=== PATIENT | female | born 1955 | race Caucasian/White ===

== ENCOUNTER 2018-10-30 07:58 | Day surgery (SDC) | payer MEDICARE, MEDICAID ==
[2018-10-30] MEDS ORDERED: PROPOFOL 10 MG/ML VIAL IV ONE (07:59)
[2018-10-30] MEDS ORDERED: FENTANYL PF 100MCG/2ML VIAL IV ONE (07:59)
[2018-10-30] MEDS ORDERED: LIDOCAINE 2% MDV (20MG/ML) 20ML VIAL IV ONE (07:59)
--- NOTE | 2018-10-30 14:20 | Operative Note ---
DATE OF SURGERY: 10/30/2018 OPERATION: ESOPHAGOGASTRODUODENOSCOPY with multiple biopsies. INDICATION: Recurring pyrosis with prior history of esophageal ulceration. Patient also with intermittent mild dysphagia and odynophagia. She takes Protonix on an as-needed basis only. She takes antacids also. Upper endoscopy is performed at this time for further evaluation. ANESTHESIA: Intravenous sedation was administered by the department of anesthesiology and included Diprivan titrated to effect. PROCEDURE: Following informed consent from this alert individual, including a discussion of the risks and benefits of the procedure and an opportunity for the patient to ask questions, the patient was in the left lateral decubitus position. The Olympus [id number] video endoscope was inserted into the posterior pharynx and esophagus without resistance. The posterior pharynx appeared unremarkable. The esophagus was normal to the level of the GE junction where a superficial 7-8 mm ulceration was noted just above the GE junction itself. There was no stricture formation. The stomach was then entered. There was some mild antral gastritis noted in linear fashion. No ulcerations or erosions were seen within the stomach. The pylorus was patent. The duodenal bulb, sweep and descending duodenum demonstrated some focal erythema and for this reason, biopsies were taken from the bulb and second portion of the duodenum. The endoscope was then drawn back into the stomach where retroflexion accomplished following air insufflation failed to demonstrate any additional changes. The endoscope was straightened and biopsies were taken from the stomach to assess for Helicobacter pylori and check histology. After biopsy, endoscope was then withdrawn back through the esophagus and removed. She tolerated the procedure well and was returned to the recovery area in stable condition. IMPRESSION: 1. A 7-8 mm superficial distal esophageal ulceration. 2. Mild linear antral gastritis. 3. Patchy duodenitis, biopsies taken. RECOMMENDATION: The patient will be started on Pepcid 20 mg twice daily in hopes that this will not cause the diarrhea she experiences with PPIs. Further recommendations will be forthcoming pending results of biopsy obtained today. She will also follow up with NGI in the next 2-3 months. Followup will also be with Trung Virk DO, and his associates. As always, thank you for allowing me to participate in the care of your patient. CC: Trung Virk DO [facility] CENTERSharon
--- NOTE | 2018-10-30 14:20 | Operative Note ---
DATE OF SURGERY: 10/30/2018 OPERATION: COLONOSCOPY to the cecum. INDICATION: Prior history of adenomatous polyps. The patient had 3 polyps removed 3 years ago. She returns at this time for surveillance. She has a prior history of diverticulitis as well. ANESTHESIA: Intravenous sedation was administered by the department of anesthesiology and included Diprivan titrated to effect. PROCEDURE: Following informed consent from this alert individual including a discussion of the risks and benefits of the procedure and an opportunity for the patient to ask questions, the patient was in the left lateral decubitus position. A digital rectal examination was performed. No abnormalities were noted. Following this, the Olympus [id number] video colonoscope was inserted into the rectum without resistance. The rectal mucosa had a normal appearance with normal folds and distensibility. The colonoscope was advanced up through the bowel to the level of the cecum without much difficulty. A few scattered diverticula were seen in the sigmoid colon. The cecum was defined by noting the appendiceal orifice and ileocecal valve. From the base of the cecum, the colonoscope was slowly withdrawn. In the transverse colon, there was a lipoma noted but no other mucosal changes noted throughout the right colon. In the left colon there were scattered diverticula seen in the sigmoid region. No polyps were noted throughout the exam. Retroflexion in the rectum revealed small internal hemorrhoids. The endoscope was straightened and removed after retroflexion was accomplished. The patient tolerated the procedure well and was returned to the recovery area in stable condition. IMPRESSION: 1. Transverse colon lipoma. 2. Sigmoid diverticulosis. 3. Small internal hemorrhoids. RECOMMENDATIONS: The patient was advised to have recheck colonoscopy in 5 years' time or sooner should problems arise. Followup will also be with Trung Virk DO, and with the NGI office as well. As always, thank you for allowing me to participate in the care of your patient. CC: DO EMERITA Garrison
== END 2018-10-30 10:50 | disposition home or self-care (01) ==
LOC: HOP 07:58
PROVIDERS: ATTEND Internal Medicine Gastroenterology
DX: Z09 Encounter for follow-up examination after completed treatment for conditions other than malignant neoplasm (principal); Z86.010 Personal history of colon polyps; Z87.19 Personal history of other diseases of the digestive system; D17.79 Benign lipomatous neoplasm of other sites; K57.30 Diverticulosis of large intestine without perforation or abscess without bleeding; R13.10 Dysphagia, unspecified; R12 Heartburn; K22.10 Ulcer of esophagus without bleeding; K29.60 Other gastritis without bleeding; K29.80 Duodenitis without bleeding; J44.9 Chronic obstructive pulmonary disease, unspecified; K21.9 Gastro-esophageal reflux disease without esophagitis